=== PATIENT | female | born 1930 | race Caucasian/White ===

== ENCOUNTER 2017-01-22 20:26 | Emergency (ER) | payer OTHER ==
--- NOTE | 2017-01-22 20:39 | CPEKG ---
Heart Rate: 54 RR Interval: 1111 P-R Interval: 164 QRSD Interval: 96 QT Interval: 448 QTC Interval: 425 P Gordon: -3 QRS Gordon: -58 T Wave Gordon: 5 EKG Severity - ABNORMAL ECG - EKG Impression: SINUS RHYTHM EKG Impression: LEFT ANTERIOR FASCICULAR BLOCK EKG Impression: CONSIDER ANTERIOR INFARCT Electronically Signed By: Volodymyr Alvarado 22-Jan-2017 22:51:04
[2017-01-22] MEDS ORDERED: NS 1,000 ML IV ONE (21:10)
--- NOTE | 2017-01-22 21:10 | EDPHY ---
H & P Stated Complaint: Near Syncope - HX of same HPI/ROS: HPI CHIEF COMPLAINT: Near syncope HISTORY OF PRESENT ILLNESS: This patient very pleasant 86-year-old female, she denies having any significant medical history does not take any daily medications she presents emergency room by EMS for near syncope. Patient was at a [employer] party tonight she states that she was sitting by a fireplace in front of a hot fire for prolonged period of time she did not have anything to drink. She states that she was eating very salty foods and did not take any liquid intake including she did not have any water or alcohol this evening. She went to get up from a seated position and felt very lightheaded felt like she was going to pass out. She denies any palpitations chest pain or shortness of breath. Denied headache. Denied neck pain. Denied focal numbness or tingling. Main complaint lightheaded when standing up. She then proceeded to put her head between her legs and this made her feel better however EMS was called by other people at the [employer] party and she was recommended come to the emergency room for evaluation. Since arriving in emergency room she has no complaints she denies any headache chest pain shortness of breath palpitations or feeling lightheadedness or dizziness. Past Medical History: Denies medical history, very hard of hearing and has cochlear implant Past Surgical History: Denies any recent surgery history Social History: Denies daily use drugs alcohol tobacco products. Retired. Family History: Noncontributory ROS REVIEW OF SYSTEMS: A comprehensive 10 point review of systems is otherwise negative aside from elements mentioned in the history of present illness. Exam Constitutional appears well nontoxic triage nursing summary reviewed, vital signs reviewed, awake/alert. Eyes normal conjunctivae and sclera, EOMI, PERRLA. HENT normal inspection, atraumatic, dry mucous membranes, no epistaxis, neck supple/ no meningismus, no raccoon eyes. Respiratory clear to auscultation bilaterally, normal breath sounds, no respiratory distress, no wheezing. Cardiovascular rate normal, regular rhythm, no murmur, no edema, distal pulses normal. Gastrointestinal soft, non-tender, no rebound, no guarding, normal bowel sounds, no distension, no pulsatile mass. Genitourinary no CVA tenderness. Musculoskeletal no midline vertebral tenderness, full range of motion, no calf swelling, no tenderness of extremities, no meningismus, good pulses, neurovascularly intact. Skin pink, warm, & dry, no rash, skin atraumatic. Neurologic awake, alert and oriented x 3, AAOx3, moves all 4 extremities equally, motor intact, sensory intact, CN II-XII intact, normal cerebellar, normal vision, normal speech. Psychiatric normal mood/affect. Heme/Lymph/Immune no lymphadenopathy. Differential Diagnosis: Includes but is not limited to in a particular order dehydration, electrolyte disturbance, orthostatic hypotension, cardiac arrhythmia, ACS Medical Decision Making: Plan for this patient EKG, cardiac monitoring, IV establishment IV fluid bolus, check orthostatic vital signs, check basic electrolytes, chest x-ray re-evaluate. Re-evaluation: EKG interpretation by me on record in [employer] system. Impression time of EKG 2035, sinus rhythm rate of 54 left anterior fascicular block present. When I compare this EKG to her old EKG dated 08/21/2011 is very similar morphology. I do not appreciate new acute ischemic changes. 2147: Patient resting comfortably no complaints. Negative orthostatics. EKG is unremarkable from previous EKG. Blood work is reassuring. Troponin negative. She is feeling better. She would like to go home and is requesting discharge her allowed to go home however return precautions have been given. She understands to return emergency room if she develops any worsening symptoms includes lightheadedness, passing out, vomiting, chest pain or shortness of breath. This patient final diagnosis is presyncope with lightheadedness in the setting of dehydration. 2214: Patient ambulated well throughout the emergency room without difficulty. Feels steady on feet for denies chest pain shortness of breath or lightheadedness or dizziness. She would like to go home. She does not appear volume overloaded infection received a L of fluid here in emergency room is feeling well. Source: Patient - Personal History Current Tetanus Diphtheria and Acellular Pertussis (TDAP): Yes - Medical/Surgical History Hx Asthma: No Hx Chronic Respiratory Disease: No Hx Diabetes: No Hx Cardiac Disease: No Hx Renal Disease: No Hx Cirrhosis: No Hx Alcoholism: No Hx HIV/AIDS: No Hx Splenectomy or Spleen Trauma: No Other PMH: Chronic Hypotension, Hard of Hearing - Social History Smoking Status: Never smoked Constitutional: Initial Vital Signs Temperature (C) 36.7 C 01/22/17 20:35 Heart Rate 59 L 01/22/17 20:35 Respiratory Rate 16 01/22/17 20:35 Blood Pressure 136/77 H 01/22/17 20:35 O2 Sat (%) 96 01/22/17 20:35 O2 Delivery Mode Room Air Allergies/Adverse Reactions: Penicillins Allergy (Verified 08/21/11 15:05) Home Medications: Medication Instructions Recorded Miscellaneous Medical Supply [NO 1 ea MISC AD 08/21/11 HOME MEDS] Medical Decision Making - Diagnostics Imaging Results: Imaging Impressions Chest X-Ray 01/22/17 21:10 Impression: Possible cardiomegaly with either interstitial lung disease or curly B lines. A routine PA and lateral chest would be helpful to better evaluate the cardiothoracic equilibrium. - Data Points Laboratory Results: Laboratory Results 01/22/17 20:30 01/22/17 20:30 01/22/17 01/22/17 01/22/17 20:30 20:30 20:30 WBC 8.44 10^3/uL 10^3/uL (3.80-9.50) RBC 4.07 10^6/uL L 10^6/uL (4.18-5.33) Hgb 12.9 g/dL g/dL (12.6-16.3) Hct 38.3 % % (38.0-47.0) MCV 94.1 fL fL (81.5-99.8) MCH 31.7 pg pg (27.9-34.1) MCHC 33.7 g/dL g/dL (32.4-36.7) RDW 12.5 % % (11.5-15.2) Plt Count 213 10^3/uL 10^3/uL (150-400) MPV 9.7 fL fL (8.7-11.7) Neut % (Auto) 37.0 % L % (39.3-74.2) Lymph % (Auto) 50.5 % H % (15.0-45.0) [place] % (Auto) 9.5 % % (4.5-13.0) Eos % (Auto) 2.1 % % (0.6-7.6) Baso % (Auto) 0.7 % % (0.3-1.7) Nucleat RBC Rel Count 0.0 % % (0.0-0.2) Absolute Neuts (auto) 3.12 10^3/uL 10^3/uL (1.70-6.50) Absolute Lymphs (auto) 4.26 10^3/uL H 10^3/uL (1.00-3.00) Absolute Monos (auto) 0.80 10^3/uL 10^3/uL (0.30-0.80) Absolute Eos (auto) 0.18 10^3/uL 10^3/uL (0.03-0.40) Absolute Basos (auto) 0.06 10^3/uL 10^3/uL (0.02-0.10) Absolute Nucleated RBC 0.00 10^3/uL 10^3/uL (0-0.01) Immature Gran % 0.2 % % (0.0-1.1) Immature Gran # 0.02 10^3/uL 10^3/uL (0.00-0.10) PT 13.0 SEC SEC (12.0-15.0) INR 0.96 (0.83-1.16) APTT 24.7 SEC SEC (23.0-38.0) Sodium 139 mEq/L mEq/L (134-144) Potassium 4.2 mEq/L mEq/L (3.5-5.2) Chloride 99 mEq/L mEq/L (97-110) Carbon Dioxide 28 mEq/l mEq/l (22-31) Anion Gap 12 mEq/L mEq/L (8-16) BUN 18 mg/dL mg/dL (7-23) Creatinine 1.1 mg/dL H mg/dL (0.6-1.0) Estimated GFR 47 Glucose 128 mg/dL H mg/dL (70-100) Calcium 9.8 mg/dL mg/dL (8.5-10.4) Magnesium 2.1 mg/dL mg/dL (1.6-2.3) Total Bilirubin 0.3 mg/dL mg/dL (0.1-1.4) Conjugated Bilirubin 0.1 mg/dL mg/dL (0.0-0.5) Unconjugated Bilirubin 0.2 mg/dL mg/dL (0.0-1.1) AST 36 IU/L IU/L (14-46) ALT 38 IU/L IU/L (9-52) Alkaline Phosphatase 99 IU/L IU/L (38-126) Creatine Kinase 107 IU/L IU/L (0-156) CK-MB (CK-2) Fraction 2.93 ng/mL ng/mL (0.00-3.19) Troponin I < 0.012 ng/mL ng/mL (0.000-0.034) NT-Pro-B Natriuret Pep 331 pg/mL pg/mL (0-450) Total Protein 7.3 g/dL g/dL (6.3-8.2) Albumin 4.1 g/dL g/dL (3.5-5.0) Lipase 109 IU/L IU/L (23-300) Medications Given: Discontinued Medications Sodium Chloride (Ns) 1,000 mls @ 0 mls/hr IV EDNOW ONE; Wide Open PRN Reason: Protocol Stop: 01/22/17 21:11 Last Admin: 01/22/17 21:14 Dose: 1,000 mls Departure - Departure Disposition: Home, Routine, Self-Care Clinical Impression: Pre-syncope, Dehydration Condition: Good Instructions: Dehydration (ED), Near Syncope (ED) Additional Instructions: 1. Please drink lots of fluids stay well-hydrated. 2. Return to the emergency room if develops any worsening symptoms includes passing out, lightheadedness, vomiting chest pain or shortness of breath. Referrals: [facility] [phone] [Other] - As per Instructions
[2017-01-22 21:16] LABS: % IMMATURE GRANULYOCYTES 0.2 % (0.0-1.1); ABSOLUTE IMMATURE GRANULOCYTES 0.02 10^3/uL (0.00-0.10); ADD DIFF? NO; ADD MORPH? NO; ADD SCAN? NO; ATYPICAL LYMPHOCYTE FLAG 20 (0-99); FRAGMENT RBC FLAG 0 (0-99); HEMATOCRIT 38.3 % (38.0-47.0); HEMOGLOBIN 12.9 g/dL (12.6-16.3); LEFT SHIFT FLG 0 (0-99); LIPEMIA HEMOLYSIS FLAG 80 (0-99); MEAN CELL HEMOGLOBIN 31.7 pg (27.9-34.1); MEAN CELL HEMOGLOBIN CONCENTR. 33.7 g/dL (32.4-36.7); MEAN CELL VOLUME 94.1 fL (81.5-99.8); MEAN PLATELET VOLUME 9.7 fL (8.7-11.7); PLATELET CLUMPS FLAG 10 (0-99); PLATELET COUNT 213 10^3/uL (150-400); RED BLOOD CELL COUNT 4.07 10^6/uL (4.18-5.33); RED CELL DISTRIBUTION WIDTH 12.5 % (11.5-15.2)
[2017-01-22 21:21] VITALS: RESP 18; O2SAT 97
[2017-01-22 21:30] LABS: INR 0.96 (0.83-1.16)
[2017-01-22 21:31] LABS: APTT 24.7 SEC (23.0-38.0)
[2017-01-22 21:46] LABS: ALANINE AMINOTRANSFERASE 38 IU/L (9-52); ALBUMIN 4.1 g/dL (3.5-5.0); ALKALINE PHOSPHATASE 99 IU/L (38-126); ANION GAP 12 mEq/L (8-16); ASPARTATE AMINOTRANSFERASE 36 IU/L (14-46); BILIRUBIN,TOTAL 0.3 mg/dL (0.1-1.4); BILIRUBIN-CONJUGATED 0.1 mg/dL (0.0-0.5); BILIRUBIN-UNCONJUGATED 0.2 mg/dL (0.0-1.1); CALCIUM 9.8 mg/dL (8.5-10.4); CARBON DIOXIDE 28 mEq/l (22-31); CHLORIDE 99 mEq/L (97-110); CREATININE 1.1 mg/dL (0.6-1.0); GLOMERULAR FILTRATION RATE 47; GLUCOSE 128 mg/dL (70-100); MAGNESIUM 2.1 mg/dL (1.6-2.3); POTASSIUM 4.2 mEq/L (3.5-5.2); SODIUM 139 mEq/L (134-144); TOTAL PROTEIN 7.3 g/dL (6.3-8.2)
[2017-01-22 21:57] LABS: CREATINE KINASE-MB FRACTION 2.93 ng/mL (0.00-3.19); TROPONIN I < 0.012 ng/mL (0.000-0.034)
[2017-01-22 22:29] VITALS: BP 126/64; PULSE 62; TEMP 98.2
== END 2017-01-22 22:29 | disposition home or self-care (01) ==
LOC: EDUNIT#
DX: R55 Syncope and collapse (principal); E86.0 Dehydration

== ENCOUNTER 2017-07-23 14:12 | Observation (INO) | payer OTHER ==
--- NOTE | 2017-07-23 15:11 | CPEKG ---
Heart Rate: 54 RR Interval: 1111 P-R Interval: 168 QRSD Interval: 96 QT Interval: 432 QTC Interval: 410 P Independence: 29 QRS Independence: -59 T Wave Independence: 36 EKG Severity - ABNORMAL ECG - EKG Impression: SINUS RHYTHM EKG Impression: PROBABLE LEFT ATRIAL ABNORMALITY EKG Impression: LEFT ANTERIOR FASCICULAR BLOCK EKG Impression: BORDERLINE R WAVE PROGRESSION, ANTERIOR LEADS Electronically Signed By: Benita Rogers 23-Jul-2017 21:11:02
--- NOTE | 2017-07-23 15:15 | EDPHY ---
HPI/HX/ROS/PE/MDM Narrative: CHIEF COMPLAINT: Irregular heart rate, headache, chest pain HISTORY OF PRESENT ILLNESS: The patient is an 86 y/o female with a history of hypotension complaining of an irregular heart rate, chest tightness, and a left-sided headache, onset this morning at 09:00, 6 hours ago. For the last several days she was "feeling fuzzy " and lightheaded, which she thought was due to dehydration. Denies fever, nausea or diarrhea. Due to these symptoms she took mineral supplements. This morning she developed intermittent non-radiating mid-sternal chest tightness and heart palpitations.This tight chest pain feels like a "thick lump" and is a 6/10 in pain. Moving around or taking a deep breath does not affect her cardiac symptoms. These symptoms felt different than prior pre-syncopal episodes which concerned the patient. No fever, chills, shortness of breath, vomiting, diarrhea, urinary complaints. REVIEW OF SYSTEMS: Aside from elements discussed in the HPI, a comprehensive 10-point review of systems was reviewed and is negative. PAST MEDICAL HISTORY: Hypotension, presyncopal episode SOCIAL HISTORY: Son at bedside, lives in [place], single, retired physicist, originally from [place] VITAL SIGNS: Reviewed by me GENERAL: Pleasant, elderly, well-developed, well-nourished, resting comfortably in no respiratory distress. HEENT: Atraumatic. Eyes: No icterus, no injection. Mouth: moist mucous membranes. No erythema or lesions. Neck: supple with no adenopathy. LUNGS: Clear to auscultation bilaterally, no wheezes, rhonchi or rales. CARDIAC: Irregular sinus rhythm with several premature beats, no rubs, murmurs or gallops. ABDOMEN: Soft, nontender, nondistended, bowel sounds normal. BACK: No CVA tenderness. EXTREMITIES: No trauma. No edema. Range of motion is normal throughout. NEURO: Alert and oriented, grossly nonfocal. SKIN: Warm and dry, no rash. PSYCHIATRIC: Normal mentation, no agitation. Portions of this note were transcribed by a phlebotomist medical lab assistant. I personally performed a history, physical exam, medical decision making, and confirmed accuracy of information the transcribed note. ED Course: The patient is an 86 y/o female with a history of hypotension presenting with an irregular heart rate, chest tightness, and a left-sided headache, onset this morning at 09:00, 6 hours ago. On exam she has irregular sinus rhythm with several premature beats. Labs, EKG, chest x-ray, and head CT ordered. 1508: 12-LEAD EKG: Please see the full report in [employer] [facility]. My interpretation: Sinus rhythm with a rate of 54, borderline R wave progression. This EKG is similar to an EKG preformed in January 2017. 1623: Spoke with radiologist, patient has normal imaging findings. Patient should be admitted to [facility] for observation. 1700: Patient is still having chest pain; 324mg PO Aspirin administered and chest x-ray ordered. She is comfortable with plan for admission. 1746: I reviewed patient's chest x-ray; there are no acute findings. 1750: I consulted with Roselia from [facility], who would like the patient to remain at this hospital and not be transported to a [facility] hospital. 1752: Consulted with hospitalist service, Dr. Fu accepts admission of this patient. 1810: Patient's repeat troponin is 0.02, her initial troponin was 0.01. - Data Points Imaging Results: Imaging Impressions Head CT 07/23/17 15:16 Impression: Mild periventricular and deep hemispheric white matter change which is nonspecific, but can be seen with small vessel ischemic disease. No evidence for acute intracranial abnormality. Results called and discussed with Benita Rogers MD on July 23, 2017 at 1623 hours. Chest X-Ray 07/23/17 17:05 Impression: No evidence for acute cardiopulmonary abnormality. Chronic findings as above. Imaging: Discussed imaging studies w/ toll mechanic Radiologist, I viewed and interpreted images myself Laboratory Results: Laboratory Results 07/23/17 15:09 07/23/17 15:09 07/23/17 07/23/17 07/23/17 15:14 15:09 15:09 WBC 6.73 10^3/uL 10^3/uL (3.80-9.50) RBC 4.17 10^6/uL L 10^6/uL (4.18-5.33) Hgb 12.8 g/dL g/dL (12.6-16.3) Hct 38.2 % % (38.0-47.0) MCV 91.6 fL fL (81.5-99.8) MCH 30.7 pg pg (27.9-34.1) MCHC 33.5 g/dL g/dL (32.4-36.7) RDW 12.9 % % (11.5-15.2) Plt Count 204 10^3/uL 10^3/uL (150-400) MPV 9.7 fL fL (8.7-11.7) Neut % (Auto) 64.7 % % (39.3-74.2) Lymph % (Auto) 26.0 % % (15.0-45.0) [place] % (Auto) 7.9 % % (4.5-13.0) Eos % (Auto) 0.7 % % (0.6-7.6) Baso % (Auto) 0.6 % % (0.3-1.7) Nucleat RBC Rel Count 0.0 % % (0.0-0.2) Absolute Neuts (auto) 4.35 10^3/uL 10^3/uL (1.70-6.50) Absolute Lymphs (auto) 1.75 10^3/uL 10^3/uL (1.00-3.00) Absolute Monos (auto) 0.53 10^3/uL 10^3/uL (0.30-0.80) Absolute Eos (auto) 0.05 10^3/uL 10^3/uL (0.03-0.40) Absolute Basos (auto) 0.04 10^3/uL 10^3/uL (0.02-0.10) Absolute Nucleated RBC 0.00 10^3/uL 10^3/uL (0-0.01) Immature Gran % 0.1 % % (0.0-1.1) Immature Gran # 0.01 10^3/uL 10^3/uL (0.00-0.10) Sodium 138 mEq/L mEq/L (135-145) Potassium 4.4 mEq/L mEq/L (3.3-5.0) Chloride 100 mEq/L mEq/L (97-110) Carbon Dioxide 26 mEq/l mEq/l (22-31) Anion Gap 12 mEq/L mEq/L (8-16) BUN 16 mg/dL mg/dL (7-23) Creatinine 0.7 mg/dL mg/dL (0.6-1.0) Estimated GFR > 60 Glucose 97 mg/dL mg/dL (70-100) Calcium 9.7 mg/dL mg/dL (8.5-10.4) POC Troponin I 0.01 ng/mL ng/mL (0.00-0.08) Medications Given: Discontinued Medications Aspirin (Aspirin) 324 mg PO EDNOW ONE Stop: 07/23/17 17:06 Last Admin: 07/23/17 17:09 Dose: 324 mg Point of Care Test Results: Chemistry 07/23/17 15:14 POC Troponin I 0.01 ng/mL ng/mL (0.00-0.08) General Time Seen by Provider: 07/23/17 15:12 Initial Vital Signs: Initial Vital Signs Temperature (C) 36.7 C 07/23/17 14:17 Heart Rate 84 07/23/17 14:17 Respiratory Rate 18 07/23/17 14:17 Blood Pressure 166/88 H 07/23/17 14:17 O2 Sat (%) 97 07/23/17 14:17 O2 Delivery Mode Room Air Allergies/Adverse Reactions: Penicillins Allergy (Verified 08/21/11 15:05) Home Medications: Medication Instructions Recorded NK [No Known Home Meds] 07/23/17 Departure - Departure Disposition: [facility] Inpatient Acute Clinical Impression: Palpitations Chest pain Qualifiers: Chest pain type: other chest pain Qualified Code(s): R07.89 - Other chest pain Headache Qualifiers: Headache type: unspecified Headache chronicity pattern: acute headache Intractability: not intractable Qualified Code(s): R51 - Headache Condition: Fair Report Scribed for: Benita Rogers Report Scribed by: Ave Galvan Date of Report: 07/23/17 Time of Report: 15:15
[2017-07-23 15:44] LABS: PLATELET COUNT 204 10^3/uL (150-400)
[2017-07-23] MEDS ORDERED: ASPIRIN 81 MG CHEWABLE TAB PO ONE (17:05)
--- NOTE | 2017-07-23 18:04 | CPEKG ---
Heart Rate: 48 RR Interval: 1250 P-R Interval: 180 QRSD Interval: 92 QT Interval: 456 QTC Interval: 408 P [place]: 31 QRS [place]: -53 T Wave [place]: 34 EKG Severity - ABNORMAL ECG - EKG Impression: SINUS BRADYCARDIA EKG Impression: PROBABLE LEFT ATRIAL ABNORMALITY EKG Impression: LEFT ANTERIOR FASCICULAR BLOCK EKG Impression: BORDERLINE R WAVE PROGRESSION, ANTERIOR LEADS Electronically Signed By: Benita Rogers 23-Jul-2017 21:10:58
[2017-07-23] MEDS ORDERED: ONDANSETRON 4 MG/2 ML VIAL IVP PRN (19:15)
[2017-07-23] MEDS ORDERED: ACETAMINOPHEN 325 MG TAB PO PRN (19:15)
[2017-07-23] MEDS ORDERED: ONDANSETRON DISINTEGRATING 4 MG TAB PO PRN (19:15)
[2017-07-23] MEDS ORDERED: LISINOPRIL 2.5 MG TAB PO ONE ×2 (19:19→21:30)
--- NOTE | 2017-07-23 19:46 | GHP ---
[f rep st] HISTORY AND PHYSICAL DATE OF ADMISSION: 07/23/2017 CHIEF COMPLAINT: Chest pain. HISTORY OF PRESENT ILLNESS: This is an 86-year-old healthy female who presents with chest pain. She notes that a few days ago she walked uphill when it was very hot, she has felt dehydrated since. To day, she noticed some increased palpitations and tightness in her lower sternal area. Does not seem to be exertional. It seems to be intermittent. She has no history of heart disease, hypertension, o r hyperlipidemia. She had also complained of a headache that seemed to be associated with these symp toms. PAST MEDICAL/SURGICAL HISTORY: 1. Hard of hearing, status post implant. 2. Lumpectomy in the 1950s, which was benign. 3. Appendectomy at 25 years old. MEDICATIONS: Please see Medication Reconciliation. ALLERGIES: Penicillin. SOCIAL HISTORY: She does not drink anymore. She does not smoke. 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 FAMILY HISTORY: Reviewed, noncontributory. REVIEW OF SYSTEMS: Ten-point review of systems is conducted and is negative except per HPI. PHYSICAL EXAM: VITAL SIGNS: Blood pressure 166/88, heart rate 84, respiration rate 18, satting at 9 7% on room air, temperature is 36.7. GENERAL: The patient is a very pleasant female who is resting comfortably in no acute distress. HEENT: Normocephalic, atraumatic. CARDIOVASCULAR: Regular rate and rhythm. No murmurs, rubs, or gallops. PULMONARY: Lungs clear to auscultation bilaterally. ABD OMEN: Soft, nontender, nondistended. SKIN: No rash. : No Yoder. PSYCHIATRIC: A normal mood a nd affect. LABS: CBC is normal. Basic metabolic panel is normal. Initial 2 troponins are 0.01 and 0.02. DATA: 1. I discussed this with Dr. Rogers, will admit to PCU. 2. I personally viewed and interpreted her chest x-ray. This shows some levoscoliosis, her heart si ze is normal, there is nothing acute. 3. Personally viewed and interpreted her EKGs, these show sinus bradycardia, she has slow R-wave pro gression, she has left anterior fascicular block, this is unchanged. 4. Head CT shows nothing acute. IMPRESSION AND PLAN: 1. Chest pain and palpitations: Given her age and history, I think her heart score is a 4. Recomme nd inpatient ischemic evaluation. I think she can exercise and she has a relatively normal EKG, we w ill try an exercise treadmill test. I have trended troponins as well, placed her on telemetry. 2. Headache: Unsure if this is related. May indicate some dehydration. Her head CT was normal for tunately. /[id number]/MODL
[2017-07-24] MEDS ORDERED: REGADENOSON 0.4 MG/5 ML SYR IVP ONE (09:29)
[2017-07-24 11:11] VITALS: BP 106/57
--- NOTE | 2017-07-24 14:52 | ASMTCMCOM ---
CM Note CM Note Notes: Anticipate dc home with support of pt's son when medically stable. CM will follow if needs/changes. Date Signed: 07/24/2017 02:51 PM Electronically Signed By:Tianna Frederick RN
--- NOTE | 2017-07-24 18:35 | CPR ---
[f rep st] NONINVASIVE CARDIAC PROCEDURE REPORT PROCEDURE: Nuclear stress test; this is the EKG portion of the test. INDICATION: Chest pain. DESCRIPTION OF PROCEDURE: EKG was attached. Baseline EKG was normal. Per protocol, adenosine Cardi olite study was performed. The heart rate went up to 87 beats per minute. No ischemic changes were noted. Patient had symptoms related to the adenosine, which eventually resolved. Blood pressure rem ained within normal limits. CONCLUSION: Nondiagnostic EKG portion of the nuclear stress test. Please await the results of the andre simpson study. /[id number]/MODL
--- NOTE | 2017-07-24 19:12 | GDS ---
[f rep st] DISCHARGE SUMMARY DISCHARGE DIAGNOSES: 1. Chest pain, resolved. 2. Headache, resolved. 3. Hard of hearing. HISTORY: For details, please see the physical dated 09/22/2017. In brief, the patient is an 86-year -old, relatively-healthy female who presents to the emergency department with chest pain. She was ad mitted to the hospital for further evaluation. HOSPITAL COURSE: The patient was admitted to the cardiac telemetry unit. Her HEART score was 4. Sh e had a relatively normal EKG, with negative troponins. Her chest pain resolved and has not recurred . She remains chest pain free at the time of discharge. She underwent a Lexiscan stress test, which was negative for ischemia. Her symptoms improved and she wished to discharge home. DISPOSITION: The patient is discharged home in stable condition. FOLLOWUP: [facility]. DISCHARGE MEDICATIONS: Please see [employer] for completed outpatient medication list. There are no n ew medications on discharge. /[id number]/MODL
== END 2017-07-24 16:15 | disposition home or self-care (01) ==
LOC: F2W 18:50
PROVIDERS: ADMIT Student in an Organized Health Care Education/Training Program; ATTEND Hospitalist
DX: R07.89 Other chest pain (principal); R55 Syncope and collapse; R51 Headache; R00.2 Palpitations; H91.90 Unspecified hearing loss, unspecified ear; Z96.21 Cochlear implant status
CPT/HCPCS: 70450; 71046; 78451; 93005; 93017; A9500; G0378; J2405; J2785; 84484-PO